=== PATIENT | male | born 1990 | race Caucasian/White ===

== ENCOUNTER 2020-08-10 15:37 | Emergency (ER) | payer OTHER ==
--- NOTE | 2020-08-10 15:49 | ED ---
CPR HPI - General Stated Complaint: CPR Time Seen by Provider: 08/10/20 15:38 Source: EMS Mode of arrival: EMS Limitations: altered mental status - History of Present Illness Initial Comments: This patient is 30-year-old man brought by ambulance to be evaluated after being found unresponsive. On EMS arrival reported there were no vital signs. When placed on monitor patient reported to be in fine V. fib and was shocked which did result in brief period of bradycardic PEA which deteriorated to asystole. They did perform ACLS and gave 5 doses of epinephrine. No change from PEA. MD Complaint: found unresponsive Onset/Timin -: minute(s) Place: home AED Applied by Bystander/Music Producer: Yes Shock Advised: Yes Number of Shocks Delivered: 1 Initial Findings in the Field: unresponsive, no respirations, no pulse ROSC in the Field: No Associated Injuries: No Treatments Prior to Arrival: intubation, chest compressions, defibrillated shocks # (1), epinephrine mgs # (4) - Related Data Allergies Allergy/AdvReac Type Severity Reaction Status Date / Time Unable to Assess Allergy Verified 08/10/20 16:28 Review of Systems ROS Statement: Those systems with pertinent positive or pertinent negative responses have been documented in the HPI. ROS Other: All systems not noted in ROS Statement are negative. Limitations: ROS unobtainable due to patients medical condition General Exam Limitations: physical limitation (Unresponsive and intubated) General appearance: other (Unresponsive) Head exam: Present: atraumatic, normocephalic Eye exam: Present: normal appearance, other (Pupils unresponsive). Absent: periorbital swelling, periorbital tenderness ENT exam: Present: other (There is endotracheal tube and bite block present) Neck exam: Present: other (No step-off or deformity) Respiratory exam: Present: other (No spontaneous inspiratory effort. Auscultation while bagging reveals a few scattered rhonchi.) Cardiovascular Exam: Present: other (There is no palpable PMI. No cardiac sounds. No palpable pulses.) GI/Abdominal exam: Present: other (No bowel sounds). Absent: distended, tenderness, guarding, mass, pulsatile mass exam: Present: normal inspection Extremities exam: Present: normal inspection, other (No evidence of trauma) Back exam: Present: other (No step-off or deformity noted) Neurological exam: Present: other (GCS is 3. No neurologic signs of life.) Skin exam: Present: intact, other (Skin is cool and cyanotic.). Absent: rash Medical Decision Making - Medical Decision Making Patient is 30-year-old man brought from home where he reportedly found unresponsive. ACLS is started in the field by EMS personnel and they state they have been providing 40 minutes of ACLS at arrival here. The patient in asystole on arrival. Sodium bicarbonate and epinephrine administered with continued CPR, as there is no change and patient remained asystole pronounced at 344pm. Case discussed with medical billing coordinator. Disposition Clinical Impression: Cardiopulmonary arrest Disposition: Condition: Undetermined Is patient prescribed a controlled substance at d/c from ED?: No Referrals: None,Stated [Primary Care Provider] - 1-2 days Preliminary Cause of : Cardiopulmonary arrest
== END 2020-08-10 18:55 | disposition expired ==
LOC: EC 15:37
DX: I46.9 Cardiac arrest, cause unspecified (principal)
CPT/HCPCS: 99285